=== PATIENT | female | born 1970 | race Caucasian/White ===

== ENCOUNTER 2017-08-21 13:21 | Emergency (ER) | payer BC, OTHER ==
[~2017-08-21] VITALS: Ht 172.7 cm; Wt 80.6 kg
[2017-08-21 13:25] VITALS: BP 145/95; TEMP 36.9; Ht 172.7 cm; Wt 80.6 kg
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
[2017-08-21] MEDS ORDERED: BCPILLS PO (14:33)
[2017-08-21] MEDS ORDERED: CYCL5TAB PO (14:57)
[2017-08-21] MEDS ORDERED: FLEXERIL HOME PACK 10 MG VIAL PO ONE (15:15)
[2017-08-21 15:16] VITALS: PULSE 70; O2SAT 99
== END 2017-08-21 15:17 | disposition home or self-care (01) ==
LOC: C.EDB 13:23 → C.EDD 15:17
DX: M25.531 Pain in right wrist (principal); M25.511 Pain in right shoulder; M25.512 Pain in left shoulder; V49.50XA Passenger injured in collision with unspecified motor vehicles in traffic accident, initial encounter; Z79.3 Long term (current) use of hormonal contraceptives; Z88.1 Allergy status to other antibiotic agents